=== PATIENT | female | born 1955 | race African-American/Black ===

== ENCOUNTER → 2016-06-29 | Outpatient (CLI) | payer MEDICARE, OTHER ==
[2016-06-29 13:23] LABS: HEMATOCRIT 35.7 % (36.0-47.0); HEMOGLOBIN 11.8 g/dL (12.0-15.5); HGB HCT DIFFERENCE -0.3; MEAN CORPUSCULAR VOLUME 85 fl (80-97); RED BLOOD COUNT 4.21 10^6/uL (3.72-5.28); RED CELL DISTRIBUTION WIDTH 13.3 % (11.5-14.0); WHITE BLOOD COUNT 5.2 10^3/uL (4.0-10.5)
[2016-06-29 13:27] LABS: APPEARANCE,URINE SLIGHTLY-CLOUDY; BILIRUBIN,URINE NEGATIVE (NEGATIVE); GLUCOSE, URINE NEGATIVE (NEGATIVE); KETONES,URINE NEGATIVE (NEGATIVE); LEUKOCYTE ESTERASE,URINE NEGATIVE (NEGATIVE); NITRITE,URINE NEGATIVE (NEGATIVE); PROTEIN,URINE 30 mg/dL (NEGATIVE); UROBILINOGEN,URINE NEGATIVE mg/dL (<2.0)
[2016-06-29 13:54] LABS: ALBUMIN 4.2 g/dL (3.5-5.0); ANION GAP 11 (5-19); BLOOD UREA NITROGEN 31 mg/dL (7-20); CALCIUM 9.6 mg/dL (8.4-10.2); CARBON DIOXIDE 24 mmol/L (22-30); CHLORIDE 105 mmol/L (98-107); CREATININE RESULT 1.51 mg/dL (0.52-1.25); GLUCOSE 121 mg/dL (75-110); SODIUM 140.2 mmol/L (137-145); TOTAL PROTEIN 7.4 g/dL (6.3-8.2)
[2016-06-29 13:55] LABS: ALANINE AMINOTRANSFERASE 40 U/L (9-52); ALKALINE PHOSPHATASE 114 U/L (38-126); ASPARTATE AMINO TRANSFERASE 29 U/L (14-36); BILIRUBIN,TOTAL 0.6 mg/dL (0.2-1.3)
== END ==
LOC: LAB 12:57
PROVIDERS: ATTEND Internal Medicine Nephrology
DX: I12.9 Hypertensive chronic kidney disease with stage 1 through stage 4 chronic kidney disease, or unspecified chronic kidney disease (principal); N18.3 Chronic kidney disease, stage 3 (moderate); E11.9 Type 2 diabetes mellitus without complications
CPT/HCPCS: 36415; 80053; 81001; 85027

== ENCOUNTER → 2016-10-18 | Outpatient (CLI) | payer MEDICARE, OTHER ==
[2016-10-18 14:14] LABS: ANION GAP 11 (5-19); BLOOD UREA NITROGEN 19 mg/dL (7-20); CALCIUM 9.1 mg/dL (8.4-10.2); CARBON DIOXIDE 26 mmol/L (22-30); CHLORIDE 105 mmol/L (98-107); CREATININE RESULT 1.29 mg/dL (0.52-1.25); GLUCOSE 163 mg/dL (75-110); POTASSIUM 3.9 mmol/L (3.6-5.0); SODIUM 142.2 mmol/L (137-145)
== END ==
LOC: LAB 13:19
PROVIDERS: ATTEND Internal Medicine Nephrology
DX: E11.22 Type 2 diabetes mellitus with diabetic chronic kidney disease (principal); I12.9 Hypertensive chronic kidney disease with stage 1 through stage 4 chronic kidney disease, or unspecified chronic kidney disease; N18.3 Chronic kidney disease, stage 3 (moderate); R80.9 Proteinuria, unspecified
CPT/HCPCS: 36415; 80048

== ENCOUNTER → 2017-03-22 | Outpatient (CLI) | payer MEDICARE, OTHER ==
[2017-03-22 10:48] LABS: HEMATOCRIT 35.6 % (36.0-47.0); HEMOGLOBIN 11.8 g/dL (12.0-15.5); HGB HCT DIFFERENCE -0.2; MEAN CORPUSCULAR HEMOGLOBIN 27.9 pg (27.0-33.4); MEAN CORPUSCULAR HGB CONC 33.2 g/dL (32.0-36.0); MEAN CORPUSCULAR VOLUME 84 fl (80-97); RED BLOOD COUNT 4.23 10^6/uL (3.72-5.28); RED CELL DISTRIBUTION WIDTH 12.6 % (11.5-14.0); WHITE BLOOD COUNT 3.8 10^3/uL (4.0-10.5)
[2017-03-22 11:09] LABS: APPEARANCE,URINE CLEAR; BILIRUBIN,URINE NEGATIVE (NEGATIVE); GLUCOSE, URINE NEGATIVE (NEGATIVE); KETONES,URINE NEGATIVE (NEGATIVE); LEUKOCYTE ESTERASE,URINE NEGATIVE (NEGATIVE); NITRITE,URINE NEGATIVE (NEGATIVE); PROTEIN,URINE 30 mg/dL (NEGATIVE); URINE SPECIFIC GRAVITY 1.009; UROBILINOGEN,URINE NEGATIVE mg/dL (<2.0)
[2017-03-22 11:23] LABS: ANION GAP 10 (5-19); BLOOD UREA NITROGEN 23 mg/dL (7-20); CALCIUM 9.2 mg/dL (8.4-10.2); CARBON DIOXIDE 30 mmol/L (22-30); CHLORIDE 105 mmol/L (98-107); CREATININE RESULT 1.43 mg/dL (0.52-1.25); GLUCOSE 87 mg/dL (75-110); POTASSIUM 4.6 mmol/L (3.6-5.0); SODIUM 144.7 mmol/L (137-145)
== END ==
LOC: LAB 10:29
PROVIDERS: ATTEND Internal Medicine Nephrology
DX: N18.3 Chronic kidney disease, stage 3 (moderate) (principal); R80.9 Proteinuria, unspecified; E11.9 Type 2 diabetes mellitus without complications; I12.9 Hypertensive chronic kidney disease with stage 1 through stage 4 chronic kidney disease, or unspecified chronic kidney disease
CPT/HCPCS: 36415; 80048; 81001; 85027

== ENCOUNTER 2017-09-13 09:18 | Observation (INO) | payer MEDICARE, OTHER ==
[2017-09-13] MEDS ORDERED: ASPIRIN 81 MG TABLET, CHEWABLE PO ONE (09:41)
--- NOTE | 2017-09-13 09:42 | ER Document Report ---
ED Medical Screen (RME) - General Chief Complaint: Chest Pain > 30 Stated Complaint: CHEST PAIN, DIZZY Time Seen by Provider: 09/13/17 09:41 TRAVEL OUTSIDE OF THE [place] IN LAST 30 DAYS: No - HPI Notes: 09/13/17 09:41 Chest pain dizziness and myalgias ongoing since this morning. Patient did not take her blood pressure medication - Related Data Allergies/Adverse Reactions: amoxicillin [Amoxicillin] Allergy (Verified 09/13/17 09:20) Past Medical History - Social History Chew tobacco use (# tins/day): No Frequency of alcohol use: None Drug Abuse: None - Past Medical History Cardiac Medical History: Reports: Hx Heart Attack, Hx Hypercholesterolemia, Hx Hypertension Neurological Medical History: Denies: Hx Cerebrovascular Accident Endocrine Medical History: Reports: Hx Diabetes Mellitus Type 2 Renal/ Medical History: Denies: Hx Peritoneal Dialysis GI Medical History: Reports: Hx Gastroesophageal Reflux Disease Psychiatric Medical History: Reports: Hx Depression - in hx Past Surgical History: Reports: Hx Hysterectomy - Immunizations Hx Diphtheria, Pertussis, Tetanus Vaccination: No Review of Systems - Review of Systems Constitutional: Other - Chest pain dizziness myalgias Physical Exam - Vital signs Vitals: Temp Pulse Resp BP Pulse Ox 97.8 F 65 16 177/72 H 96 09/13/17 09:33 09/13/17 09:33 09/13/17 09:33 09/13/17 09:33 09/13/17 09:33 - General General appearance: Appears well In distress: None Course - Vital Signs Vital signs: Temp Pulse Resp BP Pulse Ox 97.8 F 65 16 177/72 H 96 09/13/17 09:33 09/13/17 09:33 09/13/17 09:33 09/13/17 09:33 09/13/17 09:33
[2017-09-13 10:17] LABS: ABSOLUTE EOSINOPHILS # (AUTO) 0.2 10^3/uL (0.0-0.6); ABSOLUTE LYMPHOCYTES (AUTO) 1.5 10^3/uL (0.5-4.7); ABSOLUTE MONOCYTES (AUTO) 0.3 10^3/uL (0.1-1.4); BASOPHILS % (AUTO) 0.7 % (0-2); EOSINOPHILS % (AUTO) 4.5 % (0-6); HEMATOCRIT 38.9 % (36.0-47.0); HEMOGLOBIN 12.9 g/dL (12.0-15.5); LYMPHOCYTES % (AUTO) 38.6 % (13-45); MEAN CORPUSCULAR HEMOGLOBIN 27.7 pg (27.0-33.4); MEAN CORPUSCULAR HGB CONC 33.1 g/dL (32.0-36.0); MEAN CORPUSCULAR VOLUME 84 fl (80-97); MONOCYTES % (AUTO) 7.2 % (3-13); PLATELET COUNT 223 10^3/uL (150-450); RED BLOOD COUNT 4.65 10^6/uL (3.72-5.28); RED CELL DISTRIBUTION WIDTH 12.7 % (11.5-14.0); TOTAL CELLS COUNTED % (AUTO) 100 %
[2017-09-13 10:30] LABS: ALANINE AMINOTRANSFERASE 37 U/L (9-52); ALBUMIN 4.2 g/dL (3.5-5.0); ALKALINE PHOSPHATASE 131 U/L (38-126); ANION GAP 10 (5-19); ASPARTATE AMINO TRANSFERASE 27 U/L (14-36); BILIRUBIN,DIRECT 0.2 mg/dL (0.0-0.4); BILIRUBIN,TOTAL 0.5 mg/dL (0.2-1.3); BLOOD UREA NITROGEN 20 mg/dL (7-20); CALCIUM 9.6 mg/dL (8.4-10.2); CARBON DIOXIDE 31 mmol/L (22-30); CHLORIDE 101 mmol/L (98-107); CREATINE KINASE 147 U/L (30-135); GLUCOSE 235 mg/dL (75-110); POTASSIUM 3.8 mmol/L (3.6-5.0); SODIUM 142.4 mmol/L (137-145); TOTAL PROTEIN 7.5 g/dL (6.3-8.2)
--- NOTE | 2017-09-13 10:35 | ER Document Report ---
ED Cardiac - General Chief Complaint: Chest Pain > 30 Stated Complaint: CHEST PAIN, DIZZY Time Seen by Provider: 09/13/17 09:41 Notes: The patient is a 62-year-old female, past medical history hypertension, IDDM, presents with several hours of substernal chest pain and diffuse chest pressure started while she was sleeping. She has never had pain like this before. She did not take any of her medications this none of her blood pressure medications. Her last stress test was 3 years ago and she said it was normal. She denies shortness of breath, numbness, tingling, back pain, nausea, vomiting , diaphoresis, rash or abdominal pain. TRAVEL OUTSIDE OF THE [place] IN LAST 30 DAYS: No - Related Data Allergies/Adverse Reactions: amoxicillin [Amoxicillin] Allergy (Verified 09/13/17 09:20) Past Medical History - General Information source: Patient - Social History Smoking Status: Never Smoker Chew tobacco use (# tins/day): No Frequency of alcohol use: None Drug Abuse: None Family History: None Patient has suicidal ideation: No Patient has homicidal ideation: No - Past Medical History Cardiac Medical History: Reports: Hx Heart Attack, Hx Hypercholesterolemia, Hx Hypertension Neurological Medical History: Denies: Hx Cerebrovascular Accident Endocrine Medical History: Reports: Hx Diabetes Mellitus Type 2 Renal/ Medical History: Denies: Hx Peritoneal Dialysis GI Medical History: Reports: Hx Gastroesophageal Reflux Disease Psychiatric Medical History: Reports: Hx Depression - in hx Past Surgical History: Reports: Hx Hysterectomy - Immunizations Hx Diphtheria, Pertussis, Tetanus Vaccination: No Review of Systems - Review of Systems Notes: REVIEW OF SYSTEMS: CONSTITUTIONAL: -fevers, -chills EENT: -eye pain, -difficulty swallowing, -nasal congestion CARDIOVASCULAR: +chest pain, -syncope. RESPIRATORY: -cough, -SOB GASTROINTESTINAL: -abdominal pain, -nausea, -vomiting, -diarrhea GENITOURINARY: -dysuria, -hematuria MUSCULOSKELETAL: -back pain, -neck pain SKIN: -rash or skin lesions. HEMATOLOGIC: -easy bruising or bleeding. LYMPHATIC: -swollen, enlarged glands. NEUROLOGICAL: -altered mental status or loss of consciousness, -headache, - neurologic symptoms PSYCHIATRIC: -anxiety, -depression. ALL OTHER SYSTEMS REVIEWED AND NEGATIVE. Physical Exam - Vital signs Vitals: Temp Pulse Resp BP Pulse Ox 97.8 F 65 16 177/72 H 96 09/13/17 09:33 09/13/17 09:33 09/13/17 09:33 09/13/17 09:33 09/13/17 09:33 - Notes Notes: PHYSICAL EXAMINATION: GENERAL: Well-appearing, well-nourished and in no acute distress. HEAD: Atraumatic, normocephalic. EYES: Pupils equal round and reactive to light, extraocular movements intact, sclera anicteric, conjunctiva are normal. ENT: nares patent, oropharynx clear without exudates. Moist mucous membranes. NECK: Normal range of motion, supple without lymphadenopathy LUNGS: Breath sounds clear to auscultation bilaterally and equal. No wheezes rales or rhonchi. HEART: Regular rate and rhythm without murmurs ABDOMEN: Soft, nontender, normoactive bowel sounds. No guarding, no rebound. No masses appreciated. EXTREMITIES: Normal range of motion, no pitting or edema. No cyanosis. Strong distal pulses. NEUROLOGICAL: Cranial nerves grossly intact. Normal speech, normal gait. Normal sensory and motor exams. PSYCH: Normal mood, normal affect. SKIN: Warm, Dry, normal turgor, no rashes or lesions noted. Course - Re-evaluation Re-evalutation: Pt with anterior chest pressure that is improved with nitro. EKG does not show a STEMI and first troponin is negative. Chest x-ray also does not show any acute abnormalities. Her HEART score is 5. No risk factors of PE and her symptoms are atypical for aortic dissection at this time. 09/13/17 12:05 Spoke to Dilcia Moser NP, and she has accepted patient to [facility] for further evaluation and treatment. - Vital Signs Vital signs: Temp Pulse Resp BP Pulse Ox 97.8 F 65 15 132/71 H 96 09/13/17 09:33 09/13/17 09:33 09/13/17 11:26 09/13/17 11:26 09/13/17 11:26 - Laboratory Result Diagrams: 09/13/17 10:01 09/13/17 10:01 Laboratory results interpreted by me: 09/13/17 10:01 Carbon Dioxide 31 H Creatinine 1.39 H Est GFR ( Amer) 46 L Est GFR (Non-Af Amer) 38 L Glucose 235 H Alkaline Phosphatase 131 H Creatine Kinase 147 H - Diagnostic Test Radiology reviewed: Image reviewed, Reports reviewed Radiology results interpreted by me: CXR: NAD - EKG Interpretation by Me EKG shows normal: Sinus rhythm, Kaycee, Intervals, QRS Complexes, ST-T Waves Rate: Normal Discharge - Discharge Clinical Impression: History of hypertension, History of diabetes mellitus, type II Chest pain Qualifiers: Chest pain type: unspecified Qualified Code(s): R07.9 - Chest pain, unspecified Condition: Stable Disposition: ADMITTED OBSERVATION Admitting Provider: Hospitalist - [facility] Admitted: Telemetry Referrals: DES LEDBETTER MD [Primary Care Provider] - Follow up as needed
--- NOTE | 2017-09-13 10:38 | RADIOLOGY REPORT (SQ) ---
EXAM DESCRIPTION: CHEST 2 VIEWS COMPLETED DATE/TIME: 09/13/2017 10:18 am REASON FOR STUDY: cp COMPARISON: None. EXAM PARAMETERS: NUMBER OF VIEWS: two views TECHNIQUE: Digital Frontal and Lateral radiographic views of the chest acquired. RADIATION DOSE: NA LIMITATIONS: none FINDINGS: LUNGS AND PLEURA: No opacities, masses or pneumothorax. No pleural effusion. MEDIASTINUM AND HILAR STRUCTURES: No masses or contour abnormalities. HEART AND VASCULAR STRUCTURES: Heart normal size. No evidence for failure. BONES: No acute findings. HARDWARE: None in the chest. OTHER: No other significant finding. IMPRESSION: NO ACUTE RADIOGRAPHIC FINDING IN THE CHEST. TECHNICAL DOCUMENTATION: JOB ID: [id number] [employer]- All Rights Reserved Reading location - IP/workstation name: [email or web address]
[2017-09-13] MEDS ORDERED: VALSARTAN 80 MG TABLET PO ONE (10:39)
[2017-09-13] MEDS ORDERED: HYDROCHLOROTHIAZIDE 12.5 MG CAPSULE PO ONE (10:39)
[2017-09-13 10:46] LABS: CREATINE KINASE MB 1.01 ng/mL (<4.55)
[2017-09-13 10:50] LABS: TROPONIN I < 0.012 ng/mL
[2017-09-13] MEDS: NITROGLYCERIN 0.4 MG/TAB 25 TAB/BOTTLE SL PRN ×2 (11:13→11:27)
[2017-09-13] MEDS ORDERED: NITROGLYCERIN 0.4 MG/TAB 25 TAB/BOTTLE SL PRN (12:21)
[2017-09-13] MEDS ORDERED: DEXTROSE 50%-WATER 25 GM/50 ML DISP.SYRIN IV PRN ×2 (12:23)
[2017-09-13] MEDS ORDERED: GLUCAGON,HUMAN RECOMB 1 MG INJ IM PRN (12:23)
[2017-09-13] MEDS ORDERED: DEXTROSE 40% GEL 15 GM TUBE PO PRN ×2 (12:23)
[2017-09-13] MEDS ORDERED: ACETAMINOPHEN 325 MG TABLET PO PRN (12:47)
[2017-09-13] MEDS ORDERED: MAG HYDROX/AL HYDROX/SIMETH SUSP 30 ML UDCUP PO PRN (12:47)
[2017-09-13] MEDS ORDERED: MORPHINE SULFATE 10 MG/ML INJ IV PRN (12:48)
--- NOTE | 2017-09-13 13:03 | PDOC H&P ---
History of Present Illness Admission Date/PCP: DES LEDBETTER MD Patient complains of: Chest pain History of Present Illness: ANGUS ONTIVEROS is a 62 year old female with a past medical history of insulin- dependent diabetes mellitus, hypertension, and chronic kidney disease. The patient presented to the emergency department today with a complaint of chest pain that woke her from sleep this morning. She reports that she went to bed last night and felt muscle cramps throughout the evening. She woke in the middle of the night and took a spoonful of mustard which seemed to ease her muscle cramps. She went back to sleep and then woke this morning with chest pain described as heaviness that radiated to her back where she has a burning sensation. She also reported that she had associated neck and shoulder discomfort described as stiffness. She states that upon arrival to the emergency department she briefly felt dizzy but otherwise denies headache, dizziness, dyspnea, nausea. The patient reports she has not had similar symptoms in the past and has no known cardiac disease. She reports that the pain resolved following her third administration of sublingual nitroglycerin tab. Evaluation in the emergency department reveals a creatinine of 1.39 which is near her baseline, and a mildly elevated bicarb. Her initial troponin is negative. Chest x-ray is negative for acute cardiopulmonary processes. EKG demonstrates sinus rhythm. Heart score 5; high risk. She is referred to the hospitalist service for observational admission for chest pain rule out. Past Medical History Cardiac Medical History: Reports: Hyperlipidema, Hypertension Denies: Congestive Heart Failure, Coronary Artery Disease, Myocardial Infarction Pulmonary Medical History: Reports: None EENT Medical History: Reports: None Neurological Medical History: Reports: None Endocrine Medical History: Reports: Diabetes Mellitus Type 2 - Insulin-dependent Renal/ Medical History: Reports: Chronic Kidney Disease GI Medical History: Reports: Gastroesophageal Reflux Disease, Other - Small bowel resection Musculoskeltal Medical History: Reports: None Skin Medical History: Reports: None Psychiatric Medical History: Reports: Depression - in hx Denies: Alcohol Dependency, Tobacco Dependency Traumatic Medical History: Reports: None Hematology: Reports: None Infectious Medical History: Reports: None Past Surgical History Past Surgical History: Reports: Appendectomy, Hysterectomy, Other - Small bowel resection Social History Information Source: Patient Lives with: Family Smoking Status: Never Smoker Frequency of Alcohol Use: Rare Hx Recreational Drug Use: No Drugs: None Hx Prescription Drug Abuse: No - Advance Directive Resuscitation Status: Full Code Surrogate healthcare decision maker:: The patient's , Teddy Ontiveros, Family History Family History: Reviewed & Not Pertinent Parental Family History Reviewed: Yes Children Family History Reviewed: Yes Sibling(s) Family History Reviewed.: Yes Medication/Allergy Home Medications: Aspirin [Aspirin 81 mg Chewable Tablet] 81 mg PO DAILY 03/06/11 Insulin Lispro [Humalog] 10 unit SQ AC 03/06/11 Insulin Glargine,Hum.rec.anlog [Lantus] 30 unit SQ QHS 08/01/14 Valsartan/Hydrochlorothiazide [Valsartan-Hctz 80-12.5 mg Tab] 1 tab PO DAILY 01/23 Allergies/Adverse Reactions: amoxicillin [Amoxicillin] Allergy (Verified 09/13/17 09:20) Review of Systems Constitutional: ABSENT: chills, fever(s), headache(s), weight gain, weight loss Eyes: ABSENT: visual disturbances Ears: ABSENT: hearing changes Cardiovascular: PRESENT: chest pain. ABSENT: dyspnea on exertion, edema, orthropnea, palpitations Respiratory: ABSENT: cough, hemoptysis Gastrointestinal: ABSENT: abdominal pain, constipation, diarrhea, hematemesis, hematochezia, nausea, vomiting Genitourinary: ABSENT: dysuria, hematuria Musculoskeletal: PRESENT: other - Muscle cramps. ABSENT: joint swelling Integumentary: ABSENT: rash, wounds Neurological: PRESENT: vertigo - Dizziness during chest pain episode. ABSENT: abnormal gait, abnormal speech, confusion, dizziness, focal weakness, syncope Psychiatric: ABSENT: anxiety, depression, homidical ideation, suicidal ideation Endocrine: ABSENT: cold intolerance, heat intolerance, polydipsia, polyuria Hematologic/Lymphatic: ABSENT: easy bleeding, easy bruising Physical Exam Vital Signs: Temp Pulse Resp BP Pulse Ox 97.8 F 65 15 132/71 H 96 09/13/17 09:33 09/13/17 09:33 09/13/17 11:26 09/13/17 11:26 09/13/17 11:26 Intake & Output 09/12/17 09/13/17 09/14/17 06:59 06:59 06:59 Weight 100.7 kg General appearance: PRESENT: no acute distress, cooperative, obese, well- developed, well-nourished Head exam: PRESENT: atraumatic, normocephalic Eye exam: PRESENT: conjunctiva pink, EOMI, PERRLA. ABSENT: scleral icterus Ear exam: PRESENT: normal external ear exam Mouth exam: PRESENT: moist, tongue midline Neck exam: ABSENT: carotid bruit, JVD, lymphadenopathy, thyromegaly Respiratory exam: PRESENT: clear to auscultation maximino, symmetrical, unlabored. ABSENT: rales, rhonchi, wheezes Cardiovascular exam: PRESENT: RRR, +S1, +S2. ABSENT: diastolic murmur, rubs, systolic murmur Pulses: PRESENT: normal dorsalis pedis pul Vascular exam: PRESENT: normal capillary refill GI/Abdominal exam: PRESENT: normal bowel sounds, soft. ABSENT: distended, guarding, mass, organolmegaly, rebound, tenderness Rectal exam: PRESENT: deferred Extremities exam: PRESENT: full ROM. ABSENT: calf tenderness, clubbing, pedal edema Neurological exam: PRESENT: alert, awake, oriented to person, oriented to place , oriented to time, oriented to situation, CN II-XII grossly intact. ABSENT: motor sensory deficit Psychiatric exam: PRESENT: appropriate affect, normal mood. ABSENT: homicidal ideation, suicidal ideation Skin exam: PRESENT: dry, intact, warm. ABSENT: cyanosis, rash Results Laboratory Results: 09/13/17 10:01 09/13/17 10:01 09/13/17 09/13/17 10:01 10:01 WBC 4.0 RBC 4.65 Hgb 12.9 Hct 38.9 MCV 84 MCH 27.7 MCHC 33.1 RDW 12.7 Plt Count 223 Seg Neutrophils % 49.0 Lymphocytes % 38.6 Monocytes % 7.2 Eosinophils % 4.5 Basophils % 0.7 Absolute Neutrophils 2.0 Absolute Lymphocytes 1.5 Absolute Monocytes 0.3 Absolute Eosinophils 0.2 Absolute Basophils 0.0 Sodium 142.4 Potassium 3.8 Chloride 101 Carbon Dioxide 31 H Anion Gap 10 BUN 20 Creatinine 1.39 H Est GFR ( Amer) 46 L Est GFR (Non-Af Amer) 38 L Glucose 235 H Calcium 9.6 Total Bilirubin 0.5 AST 27 ALT 37 Alkaline Phosphatase 131 H Total Protein 7.5 Albumin 4.2 09/13/17 09/13/17 10:01 10:01 Creatine Kinase 147 H CK-MB (CK-2) 1.01 Troponin I < 0.012 Impressions: Chest X-Ray 09/13/17 09:41 IMPRESSION: NO ACUTE RADIOGRAPHIC FINDING IN THE CHEST. Assessment & Plan - Diagnosis (1) Chest pain Qualifiers: Chest pain type: unspecified Qualified Code(s): R07.9 - Chest pain, unspecified Is this a current diagnosis for this admission?: Yes Plan: The patient is admitted with a report of sudden onset chest pain this morning that woke her from sleep described as heaviness and radiating to her back associated with neck and shoulder stiffness. The patient has a history of insulin-dependent diabetes mellitus, hypertension, chronic kidney disease. Heart score 5; high risk. EKG demonstrated normal sinus rhythm. Chest x-ray is negative for acute cardiopulmonary processes. Initial troponin is negative. The patient will be admitted to the medical floor on continuous cardiac telemetry. She is provided supplemental oxygen as needed to maintain oxygen saturations greater than 90%. We will trend troponins. We will obtain echocardiogram. We will obtain a nuclear stress test. The patient has sublingual nitro tabs and IV morphine available as needed for pain. Daily aspirin and statin therapy are initiated. We will further stratify risk by obtaining lipid panel with fasting labs in the morning. (2) Insulin dependent diabetes mellitus Is this a current diagnosis for this admission?: Yes Plan: The patient is placed on a consistent carb/cardiac diet. Accu-Cheks before meals and at bedtime with Humalog for sliding scale coverage. We will continue the patient's home dose Lantus 30 units nightly. (3) Hypertension Is this a current diagnosis for this admission?: Yes Plan: We will continue the patient's home medication valsartan/hydrochlorothiazide 80- 12.5 daily. (4) Chronic kidney disease (CKD), stage III (moderate) Is this a current diagnosis for this admission?: Yes Plan: Stable; currently at patient's baseline kidney function. We will avoid nephrotoxic medications. We will monitor with daily chemistries. - Time Time Spent: 50 to 70 Minutes Medications reviewed and adjusted accordingly: Yes Anticipated discharge: Home Within: within 24 hours
--- NOTE | 2017-09-13 14:03 | EKG REPORT ---
SEVERITY:- NORMAL ECG - SINUS RHYTHM : Confirmed by: Devyn Rivas MD 13-Sep-2017 14:02:31
[2017-09-13] MEDS: INSULIN LISPRO 100 UNIT/ML 3 ML VIAL SUBCUT PRN ×2 (14:11→18:30)
--- NOTE | 2017-09-13 19:25 | XCELERA REPORT ---
[address] [address] Transthoracic Echocardiogram Report Name: NAGUS PRYOR Age: 62 yrs Gender: Female : 1955 Patient Status: Inpatient [address] Study Date: 09/13/2017 01:31 PM Height: 66 in Weight: 222 lb BSA: 2.1 m2 Procedure: A complete two-dimensional transthoracic echocardiogram was performed (2D, M-mode, spectral and color flow Doppler). The study was technically difficult with many images being suboptimal in quality. Reason For Study: CP Ordering Physician: BURKE MORSE Performed By: Soniya Salinas Interpretation Summary The left ventricular ejection fraction is normal. Doppler measurements suggest pseudonormalized left ventricular relaxation, which is associated with grade II/IV or mild to moderate diastolic dysfunction There is borderline concentric left ventricular hypertrophy. The left ventricle is grossly normal size. Regional wall motion abnormalities cannot be excluded due to limited visualization. The right ventricular systolic function is normal. The right ventricle is grossly normal size. The left atrial size is normal. The right atrium is normal in size There is a trace amount of mitral regurgitation There is no mitral valve stenosis. There is no aortic valve stenosis No aortic regurgitation is present. There is a trace or physiologic amount of tricuspid regurgitation Tricuspid regurgitation jet envelope not well defined to measure RV systolic pressure accurately. The aortic root is not well visualized but is probably normal size. The inferior vena cava was not well visualized There is no pericardial effusion. MMode/2D Measurements & Calculations RVDd: 2.3 cm LVIDd: 3.9 cm FS: 35.2 % Ao root diam: 2.5 cm IVSd: 0.99 cm LVIDs: 2.5 cm EDV(Teich): 65.0 ml LVPWd: 0.97 cm ESV(Teich): 22.6 ml Ao root area: 5.0 cm2 EF(Teich): 65.2 % Doppler Measurements & Calculations MV E max selena: MV dec slope: Ao V2 max: LV V1 max P.3 cm/sec 165.4 cm/sec 5.5 mmHg MV A max selena: 432.6 cm/sec2 Ao max PG: LV V1 max: 74.3 cm/sec MV dec time: 10.9 mmHg 117.7 cm/sec MV E/A: 1.1 0.19 sec PA V2 max: TR max selena: 90.1 cm/sec 211.5 cm/sec PA max PG: TR max P.9 mmHg 3.2 mmHg Left Ventricle The left ventricle is grossly normal size. There is borderline concentric left ventricular hypertrophy. The left ventricular ejection fraction is normal. Doppler measurements suggest pseudonormalized left ventricular relaxation, which is associated with grade II/IV or mild to moderate diastolic dysfunction. Regional wall motion abnormalities cannot be excluded due to limited visualization. Right Ventricle The right ventricle is grossly normal size. There is normal right ventricular wall thickness. The right ventricular systolic function is normal. Atria The right atrium is normal in size. The left atrial size is normal. Interarterial septum not well visualized and not well dopplered. Cannot comment on ASD/PFO presence. Mitral Valve The mitral valve is grossly normal. There is no mitral valve stenosis. There is a trace amount of mitral regurgitation. Aortic Valve The aortic valve is grossly normal. There is no aortic valve stenosis. No aortic regurgitation is present. Tricuspid Valve The tricuspid valve is not well visualized secondary to technical limitations. There is no tricuspid stenosis. There is a trace or physiologic amount of tricuspid regurgitation. Tricuspid regurgitation jet envelope not well defined to measure RV systolic pressure accurately. Pulmonic Valve The pulmonic valve is not well visualized. Great Vessels The aortic root is not well visualized but is probably normal size. The inferior vena cava was not well visualized. Effusions There is no pericardial effusion. : BURKE MORSE > Crystal Hendrickson
[2017-09-13] MEDS: FAMOTIDINE 20 MG TABLET PO SCH (21:19)
[2017-09-13] MEDS ORDERED: ATORVASTATIN CALCIUM 20 MG TABLET PO SCH (22:00)
[2017-09-13] MEDS ORDERED: INSULIN GLARGINE,HUM.REC.ANLOG 1,000 UNIT/10 ML UNIT SUBCUT SCH (22:00)
[2017-09-14 05:37] LABS: ANION GAP 10 (5-19); BLOOD UREA NITROGEN 24 mg/dL (7-20); CALCIUM 9.2 mg/dL (8.4-10.2); CARBON DIOXIDE 29 mmol/L (22-30); CHLORIDE 102 mmol/L (98-107); CHOLESTEROL 198.98 mg/dL (0-200); GLUCOSE 171 mg/dL (75-110); POTASSIUM 3.7 mmol/L (3.6-5.0); SODIUM 141.1 mmol/L (137-145); TRIGLYCERIDES 176 mg/dL (<150); VLDL CHOLESTEROL 35.2 mg/dL (10-31)
[2017-09-14 05:47] LABS: DIRECT LDL 104 mg/dL (<100)
[2017-09-14 07:25] LABS: HEMOGLOBIN 11.7 g/dL (12.0-15.5); MEAN CORPUSCULAR HEMOGLOBIN 27.9 pg (27.0-33.4); MEAN CORPUSCULAR HGB CONC 33.5 g/dL (32.0-36.0); MEAN CORPUSCULAR VOLUME 83 fl (80-97); PLATELET COUNT 203 10^3/uL (150-450); RED BLOOD COUNT 4.19 10^6/uL (3.72-5.28); RED CELL DISTRIBUTION WIDTH 12.4 % (11.5-14.0); WHITE BLOOD COUNT 4.6 10^3/uL (4.0-10.5)
[2017-09-14] MEDS: INSULIN LISPRO 100 UNIT/ML 3 ML VIAL SUBCUT PRN ×2 (08:23→11:34)
[2017-09-14] MEDS ORDERED: VALSARTAN 80 MG TABLET PO SCH (10:00)
[2017-09-14] MEDS ORDERED: HYDROCHLOROTHIAZIDE 12.5 MG CAPSULE PO SCH (10:00)
[2017-09-14] MEDS ORDERED: ASPIRIN 81 MG TABLET, ENT COATED PO SCH (10:00)
[2017-09-14] MEDS ORDERED: (PENDING PHARMACY ID) (Valsartan/Hydrochlorothiazide [Valsartan-Hctz 80-12.5 Mg Tab] 1 TAB PO SCH (10:00)
[2017-09-14] MEDS: FAMOTIDINE 20 MG TABLET PO SCH (11:33)
--- NOTE | 2017-09-14 13:01 | DRAGON STRESS TEST REPORT ---
INTRAVENOUS LEXISCAN CARDIOLITE STRESS TEST USING SINGLE PHOTON EMMISION COMPUTERIZED TOMOGRAPHIC. DATE OF PROCEDURE: September 14, 2017, INDICATION : Chest pain CARDIAC RISK FACTORS: Diabetes, hypertension, dyslipidemia RESTING EKG: Sinus rhythm, minor nonspecific ST-T wave changes noted. STRESS EKG: No significant ST segment changes noted with LexiScan bolus REASON FOR TERMINATION: Protocol. PROCEDURE REPORT: Baseline heart rate 63 beats per minute with blood pressure of 147/68. Patient had no significant complaints. Patient was bolused with Lexiscan 0.4 mg intravenously followed by saline bolus. Heart rate at 2 minutes post bolus 118 with a blood pressure of 128/49. 3 minutes post bolus heart rate 108 with blood pressure of 150/54. No significant EKG changes were noted. Patient had no significant complaints during the procedure or postprocedure. Patient injected with Aminophyllin 75 mg at 3 minutes or later after Lexiscan bolus. CONCLUSIONS: Normal EKG and hemodynamic response to IV LexiScan. NUCLEAR DATA: At rest the patient was given 14.65 millicuries of technetium 99 sestamibi injected intravenously. As per protocol rest gated SPECT images were obtained. On day of stress test, the patient was given intravenous LexiScan at a dose of 0.4 mg in 5 mL intravenously, followed by flush with normal saline. Subsequently the stress dose of 44.7 millicuries of technetium 99 sestamibi was injected intravenously. As per protocol stress gated images were obtained. NUCLEAR INTERPRETATION: Both raw and processed data were used for interpretation. Visual, qualitative, computer-generated quantitative data was used. There was good myocardial uptake of technetium compound. Motion artifact and soft tissue attenuations were noted. Increased visceral uptake was noted. No definitive areas of transient perfusion defect noted, No definitive areas of fixed perfusion defect or scars noted. EKG gated imaging showed LV EF at 61 %, rest and stress gated EF similar visually. T. I D. ratio was 1.04. Lung heart ratio noted to be within normal limits 0.33. No significant extracardiac and abnormal radiotracer activities were noted. RV free wall uptake was noted to be WNL. IMPRESSION: Also refer to comments under nuclear interpretation. Also test results needs to be interpreted in the context of pretest probability. 1. No definitive areas of transient perfusion defect noted. 2. There is no definitive scintigraphic evidence of myocardial infarction/scar. 3. EKG gated imaging shows left ventricular ejection fraction of approx. 61 %. 4. Clinical correlation requested as occasionally single vessel disease or balanced ischemia could be missed. In approximately 10% of the cases Lexiscan may not cause adequate vasodilatory stress. RECOMMENDATIONS: Aggressive risk factor modification and medical management. Further evaluation may be needed if continued symptoms or other high risk indicators are noted on clinical evaluation. Close cardiology follow-up is also recommended. Clinical correlation with echocardiogram derived ejection fraction. Inability to exercise by itself can lead to increased cardiovascular event risks. Consider cardiology consultation and or follow-up if clinically indicated. I am available for cardiology evaluation and consultation if requested by the primary care provider, unless patient already has a vice president of product marketing. MARGIE
[2017-09-14] MEDS ORDERED: REGADENOSON INJ 0.4 MG/5 ML DISP.SYRIN IV ONE (13:19)
[2017-09-14] MEDS ORDERED: AMINOPHYLLINE INJ/PF 250 MG/10 ML SDV IV ONE (13:19)
--- NOTE | 2017-09-14 13:51 | PDOC DISCHARGE SUMMARY ---
General - Admit/Disc Date/PCP Admission Date/Primary Care Provider: 09/13/17 12:22 DES LEDBETTER MD Discharge Date: 09/14/17 - Discharge Diagnosis (1) Chest pain Is this a current diagnosis for this admission?: Yes Summary: The patient was admitted for chest pain with heart score of 5. She had no further episodes of chest pain during this admission. EKG demonstrated normal sinus rhythm. Chest x-ray was negative for acute cardiopulmonary processes. Serial troponins were negative 4. Echocardiogram demonstrated a normal LVEF with mild to moderate diastolic dysfunction. Nuclear stress test was obtained and did not demonstrate evidence of transient perfusion defects or evidence of myocardial infarction/scar. The patient's lipid panel was borderline with LDL of 104, HDL 47, triglycerides 176. The patient declines to begin statin therapy until she discusses this at her follow-up with primary care provider. At time of discharge the patient is in stable condition, pain-free, maintaining oxygen saturations on room air. She is advised to follow-up with her primary care provider within 1 week. She is provided prescriptions for Pepcid and nitroglycerin sublingual tabs. (2) Insulin dependent diabetes mellitus Is this a current diagnosis for this admission?: Yes Summary: Stable; home medication regiment was continued. (3) Hypertension Is this a current diagnosis for this admission?: Yes Summary: Adequate blood pressure control was achieved through continuing the patient's home medication regimen. (4) Chronic kidney disease (CKD), stage III (moderate) Is this a current diagnosis for this admission?: Yes Summary: Stable. - Additional Information Resuscitation Status: Full Code Discharge Diet: Cardiac, Diabetic Discharge Activity: Activity As Tolerated, Balance Activity w/Rest, Slowly Increase Activity Prescriptions: Famotidine [Pepcid 20 mg Tablet] 20 mg PO Q12 #60 tablet Nitroglycerin [Nitrostat 0.4 mg (1/150 Gr) Tabs 25/Bottle] 1 tab SL Q5MP PRN #1 bottle PRN Reason: Home Medications: Aspirin [Aspirin 81 mg Chewable Tablet] 81 mg PO DAILY 03/06/11 Insulin Lispro [Humalog] 0 unit SQ .SLIDING SCALE 03/06/11 Insulin Glargine,Hum.rec.anlog [Lantus] 30 unit SQ QHS 08/01/14 Valsartan/Hydrochlorothiazide [Valsartan-Hctz 80-12.5 mg Tab] 1 tab PO DAILY 01/23 Aspirin [Ecotrin 81 mg EC Tablet] 81 mg PO DAILY tabec 09/14/17 Famotidine [Pepcid 20 mg Tablet] 20 mg PO Q12 #60 tablet 09/14/17 Nitroglycerin [Nitrostat 0.4 mg (1/150 Gr) Tabs 25/Bottle] 1 tab SL Q5MP PRN #1 bottle 09/14/17 History of Present Illness History of Present Illness: ANGUS PRYOR is a 62 year old female with a past medical history of insulin- dependent diabetes mellitus, hypertension, and chronic kidney disease. The patient presented to the emergency department today with a complaint of chest pain that woke her from sleep this morning. She reports that she went to bed last night and felt muscle cramps throughout the evening. She woke in the middle of the night and took a spoonful of mustard which seemed to ease her muscle cramps. She went back to sleep and then woke this morning with chest pain described as heaviness that radiated to her back where she has a burning sensation. She also reported that she had associated neck and shoulder discomfort described as stiffness. She states that upon arrival to the emergency department she briefly felt dizzy but otherwise denies headache, dizziness, dyspnea, nausea. The patient reports she has not had similar symptoms in the past and has no known cardiac disease. She reports that the pain resolved following her third administration of sublingual nitroglycerin tab. Evaluation in the emergency department reveals a creatinine of 1.39 which is near her baseline, and a mildly elevated bicarb. Her initial troponin is negative. Chest x-ray is negative for acute cardiopulmonary processes. EKG demonstrates sinus rhythm. Heart score 5; high risk. She is referred to the hospitalist service for observational admission for chest pain rule out. Physical Exam Vital Signs: Temp Pulse Resp BP Pulse Ox 97.7 F 86 16 130/84 H 95 09/14/17 11:42 09/14/17 11:42 09/14/17 11:42 09/14/17 11:42 09/14/17 11:42 Intake & Output 09/13/17 09/14/17 09/15/17 06:59 06:59 06:59 Intake Total 680 Balance 680 Weight 96.9 kg General appearance: PRESENT: no acute distress, cooperative, obese, well- developed, well-nourished Head exam: PRESENT: atraumatic, normocephalic Eye exam: PRESENT: conjunctiva pink, EOMI, PERRLA. ABSENT: scleral icterus Ear exam: PRESENT: normal external ear exam Mouth exam: PRESENT: moist, tongue midline Neck exam: ABSENT: carotid bruit, JVD, lymphadenopathy, thyromegaly Respiratory exam: PRESENT: clear to auscultation maximino, symmetrical, unlabored. ABSENT: rales, rhonchi, wheezes Cardiovascular exam: PRESENT: RRR, +S1, +S2. ABSENT: diastolic murmur, rubs, systolic murmur Pulses: PRESENT: normal dorsalis pedis pul Vascular exam: PRESENT: normal capillary refill GI/Abdominal exam: PRESENT: normal bowel sounds, soft. ABSENT: distended, guarding, mass, organolmegaly, rebound, tenderness Rectal exam: PRESENT: deferred Extremities exam: PRESENT: full ROM. ABSENT: calf tenderness, clubbing, pedal edema Neurological exam: PRESENT: alert, awake, oriented to person, oriented to place , oriented to time, oriented to situation, CN II-XII grossly intact. ABSENT: motor sensory deficit Psychiatric exam: PRESENT: appropriate affect, normal mood. ABSENT: homicidal ideation, suicidal ideation Skin exam: PRESENT: dry, intact, warm. ABSENT: cyanosis, rash Results Laboratory Results: 09/14/17 04:08 09/14/17 04:08 09/14/17 09/14/17 04:08 04:08 WBC 4.6 RBC 4.19 Hgb 11.7 L Hct 35.0 L MCV 83 MCH 27.9 MCHC 33.5 RDW 12.4 Plt Count 203 Sodium 141.1 Potassium 3.7 Chloride 102 Carbon Dioxide 29 Anion Gap 10 BUN 24 H Creatinine 1.25 Est GFR ( Amer) 52 L Est GFR (Non-Af Amer) 43 L Glucose 171 H Calcium 9.2 Triglycerides 176 H Cholesterol 198.98 LDL Cholesterol Direct 104 H VLDL Cholesterol 35.2 H HDL Cholesterol 47 09/13/17 09/13/17 09/14/17 13:33 18:15 00:25 Troponin I < 0.012 < 0.012 < 0.012 Impressions: Chest X-Ray 09/13/17 09:41 IMPRESSION: NO ACUTE RADIOGRAPHIC FINDING IN THE CHEST. Qualifiers - * PATIENT BEING DISCHARGED WITH ANY OF THE FOLLOWING DIAGNOSIS: No Plan Discharge Plan: Discharge to home with self-care. Follow-up with primary care provider within 1 week.
[2017-09-14 14:12] VITALS: BP 129/46
[2017-09-14] MEDS ORDERED: INSULIN GLARGINE,HUM.REC.ANLOG 1,000 UNIT/10 ML UNIT SUBCUT SCH (22:00)
== END 2017-09-14 14:26 | disposition home or self-care (01) ==
LOC: ER 09:18 → EH 12:22 → 4N 16:45
PROVIDERS: ADMIT Internal Medicine; ATTEND Internal Medicine
DX: R07.9 Chest pain, unspecified (principal); I12.9 Hypertensive chronic kidney disease with stage 1 through stage 4 chronic kidney disease, or unspecified chronic kidney disease; E11.22 Type 2 diabetes mellitus with diabetic chronic kidney disease; N18.3 Chronic kidney disease, stage 3 (moderate); R25.2 Cramp and spasm; M43.6 Torticollis; M25.619 Stiffness of unspecified shoulder, not elsewhere classified; R42 Dizziness and giddiness; M79.1 Myalgia; E78.5 Hyperlipidemia, unspecified; I25.2 Old myocardial infarction; Z79.4 Long term (current) use of insulin; Z79.82 Long term (current) use of aspirin; Z79.899 Other long term (current) drug therapy; Z90.49 Acquired absence of other specified parts of digestive tract
CPT/HCPCS: 93005; 99285; 36415 ×2; 82553; 82962 ×2; 82550; 85025; 85027; 80048; 80053; 84484 ×2; 80061; 93306; 93017; 71046; 78452; 93010; A9500; J2785; A9270 ×11; J3490; J0280; Q9969; J1815

== ENCOUNTER → 2017-09-18 | Outpatient (CLI) | payer MEDICARE, OTHER ==
[2017-09-18 15:00] LABS: HEMATOCRIT 35.6 % (36.0-47.0); HEMOGLOBIN 11.7 g/dL (12.0-15.5); MEAN CORPUSCULAR HEMOGLOBIN 27.6 pg (27.0-33.4); MEAN CORPUSCULAR VOLUME 84 fl (80-97); PLATELET COUNT 203 10^3/uL (150-450); RED BLOOD COUNT 4.25 10^6/uL (3.72-5.28); RED CELL DISTRIBUTION WIDTH 12.9 % (11.5-14.0); WHITE BLOOD COUNT 5.1 10^3/uL (4.0-10.5)
[2017-09-18 15:08] LABS: APPEARANCE,URINE CLEAR; BILIRUBIN,URINE NEGATIVE (NEGATIVE); COLOR,URINE YELLOW; GLUCOSE, URINE >=500 mg/dL (NEGATIVE); KETONES,URINE NEGATIVE (NEGATIVE); LEUKOCYTE ESTERASE,URINE NEGATIVE (NEGATIVE); NITRITE,URINE NEGATIVE (NEGATIVE); PROTEIN,URINE 30 mg/dL (NEGATIVE); URINE SPECIFIC GRAVITY 1.018; UROBILINOGEN,URINE NEGATIVE mg/dL (<2.0)
[2017-09-18 15:22] LABS: ANION GAP 11 (5-19); BLOOD UREA NITROGEN 29 mg/dL (7-20); CALCIUM 8.8 mg/dL (8.4-10.2); CARBON DIOXIDE 28 mmol/L (22-30); CHLORIDE 102 mmol/L (98-107); GLUCOSE 323 mg/dL (75-110); POTASSIUM 4.4 mmol/L (3.6-5.0); SODIUM 141.3 mmol/L (137-145)
[2017-09-18 15:28] LABS: UR PRO/CREAT RATIO RESULT 0.2 mg/mg (0.0-0.2); URINE CREATININE 104.2 mg/dL (15-278); URINE PROTEIN 23.8 mg/dL (<12)
== END ==
LOC: LAB 14:40
PROVIDERS: ATTEND Internal Medicine Nephrology
DX: I12.9 Hypertensive chronic kidney disease with stage 1 through stage 4 chronic kidney disease, or unspecified chronic kidney disease (principal); N18.3 Chronic kidney disease, stage 3 (moderate); R80.9 Proteinuria, unspecified
CPT/HCPCS: 36415; 80048; 81001; 82570; 84156; 85027

== ENCOUNTER → 2018-03-26 | Outpatient (CLI) | payer MEDICARE, OTHER ==
[2018-03-26 12:13] LABS: HEMATOCRIT 36.4 % (36.0-47.0); HEMOGLOBIN 12.3 g/dL (12.0-15.5); MEAN CORPUSCULAR HEMOGLOBIN 28.6 pg (27.0-33.4); MEAN CORPUSCULAR HGB CONC 33.7 g/dL (32.0-36.0); MEAN CORPUSCULAR VOLUME 85 fl (80-97); PLATELET COUNT 226 10^3/uL (150-450); RED BLOOD COUNT 4.29 10^6/uL (3.72-5.28); WHITE BLOOD COUNT 4.1 10^3/uL (4.0-10.5)
[2018-03-26 12:29] LABS: APPEARANCE,URINE SLIGHTLY-CLOUDY; BILIRUBIN,URINE NEGATIVE (NEGATIVE); COLOR,URINE YELLOW; GLUCOSE, URINE 150 mg/dL (NEGATIVE); KETONES,URINE NEGATIVE (NEGATIVE); LEUKOCYTE ESTERASE,URINE NEGATIVE (NEGATIVE); NITRITE,URINE NEGATIVE (NEGATIVE); PROTEIN,URINE 30 mg/dL (NEGATIVE); URINE SPECIFIC GRAVITY 1.013; UROBILINOGEN,URINE NEGATIVE mg/dL (<2.0)
[2018-03-26 12:30] LABS: ANION GAP 10 (5-19); BLOOD UREA NITROGEN 24 mg/dL (7-20); CALCIUM 8.9 mg/dL (8.4-10.2); CARBON DIOXIDE 28 mmol/L (22-30); CHLORIDE 103 mmol/L (98-107); GLUCOSE 250 mg/dL (75-110); POTASSIUM 4.7 mmol/L (3.6-5.0); SODIUM 141.2 mmol/L (137-145)
[2018-03-26 12:38] LABS: UR PRO/CREAT RATIO RESULT 0.3 mg/mg (0.0-0.2); URINE CREATININE 89.2 mg/dL (15-278); URINE PROTEIN 30.9 mg/dL (<12)
== END ==
LOC: LAB 11:49
PROVIDERS: ATTEND Internal Medicine Nephrology
DX: I12.9 Hypertensive chronic kidney disease with stage 1 through stage 4 chronic kidney disease, or unspecified chronic kidney disease (principal); N18.3 Chronic kidney disease, stage 3 (moderate); R80.9 Proteinuria, unspecified
CPT/HCPCS: 36415; 80048; 81001; 82570; 84156; 85027

== ENCOUNTER 2018-05-10 13:10 | Emergency (ER) | payer MEDICARE, OTHER ==
--- NOTE | 2018-05-10 16:29 | ER Document Report ---
Addendum entered and electronically signed by CISCO AGUSTIN NP 05/10/18 22:05: Procedures - Immobilization Left Ankle Time completed: 17:50 Immobilizer type: Eddie wrap, Ankle stirrup, Crutches Performed by: Provider assisted, PCT Post-Proc Neuro Vasc Exam: Normal Alignment checked and good: Yes Original Note: ED Extremity Problem, Lower - General Chief Complaint: Ankle Injury Stated Complaint: LEFT ANKLE INJURY/PAIN, SWELLING Time Seen by Provider: 05/10/18 15:24 Mode of Arrival: Ambulatory Information source: Patient Notes: 63-year-old female presents to ED for complaint of pain to the left ankle. She stepped off a step wrong yesterday. She states she has been able to ambulate but it is very painful. She is alert oriented respirations regular and u nlabored speaking in full sentences. TRAVEL OUTSIDE OF THE [place] IN LAST 30 DAYS: No - HPI Patient complains to provider of: Injury - Left ankle, Pain, Swelling Location: Ankle Occurred: Yesterday - Left Where: Home, Outdoors Onset/Duration: Gradual, Persistent Quality of pain: Achy, Throbbing Severity: Moderate Pain Level: 3 Context: Twisted, Wearing shoes Recent injury: Yes Associated symptoms: Painful ambulation Exacerbated by: Hanging down, Movement, Walking Relieved by: Ice, Rest - Related Data Allergies/Adverse Reactions: amoxicillin [Amoxicillin] Allergy (Verified 05/10/18 15:16) Past Medical History - General Information source: Patient - Social History Smoking Status: Never Smoker Cigarette use (# per day): No Chew tobacco use (# tins/day): No Smoking Education Provided: No Frequency of alcohol use: None Drug Abuse: None Lives with: Family Family History: Reviewed & Not Pertinent Patient has suicidal ideation: No Patient has homicidal ideation: No - Past Medical History Cardiac Medical History: Reports: Hx Coronary Artery Disease, Hx Hypercholesterolemia, Hx Hypertension Pulmonary Medical History: Reports: None EENT Medical History: Reports: None Neurological Medical History: Reports: None Endocrine Medical History: Reports: Hx Diabetes Mellitus Type 2 - Insulin- dependent Renal/ Medical History: Reports: None Malignancy Medical History: Reports: None GI Medical History: Reports: Hx Gastroesophageal Reflux Disease, Hx Colonoscopy, Other - Intestinal blockage with removal of part of the intestines Musculoskeletal Medical History: Reports Hx Arthritis, Reports Hx Musculoskeletal Deformity, Reports Hx Musculoskeletal Trauma Skin Medical History: Reports None Psychiatric Medical History: Reports: Hx Depression - in hx Traumatic Medical History: Reports: None Infectious Medical History: Reports: None Past Surgical History: Reports: Hx Appendectomy, Hx Bowel Surgery - Intestinal blockage of the small intestines with part of the intestines rem, Hx Hysterectomy - Immunizations Hx Diphtheria, Pertussis, Tetanus Vaccination: No Review of Systems - Review of Systems Constitutional: No symptoms reported EENT: No symptoms reported Cardiovascular: No symptoms reported Respiratory: No symptoms reported Gastrointestinal: No symptoms reported Genitourinary: No symptoms reported Female Genitourinary: No symptoms reported Musculoskeletal: Ankle swelling - Left ankle pain and swelling Skin: No symptoms reported Hematologic/Lymphatic: No symptoms reported Neurological/Psychological: No symptoms reported -: Yes All other systems reviewed and negative Physical Exam - Vital signs Vitals: Temp Pulse Resp BP Pulse Ox 98.6 F 77 18 180/69 H 96 05/10/18 13:45 05/10/18 13:45 05/10/18 13:45 05/10/18 13:45 05/10/18 13:45 Interpretation: Normal - General General appearance: Appears well, Alert - HEENT Head: Normocephalic, Atraumatic Eyes: Normal Pupils: PERRL - Respiratory Respiratory status: No respiratory distress Chest status: Nontender Breath sounds: Normal Chest palpation: Normal - Cardiovascular Rhythm: Regular Heart sounds: Normal auscultation Murmur: No - Abdominal Inspection: Normal Distension: No distension Bowel sounds: Normal Tenderness: Nontender Organomegaly: No organomegaly - Back Back: Normal, Nontender - Extremities General upper extremity: Normal inspection, Nontender, Normal color, Normal ROM, Normal temperature General lower extremity: Normal color, Normal temperature. No: Dameon's sign Ankle: Tender, Ecchymosis, Edema. No: Abrasion, Deformity, Instability, Laceration, Limited ROM - Due to pain, Positive Mo's test, Unable to bear weight - Painful to ambulate - Neurological Neuro grossly intact: Yes Cognition: Normal Orientation: AAOx4 Bath Coma Scale Eye Opening: Spontaneous Bath Coma Scale Verbal: Oriented Cory Coma Scale Motor: Obeys Commands Bath Coma Scale Total: 15 Speech: Normal Motor strength normal: LUE, RUE, LLE, RLE Sensory: Normal - Psychological Associated symptoms: Normal affect, Normal mood - Skin Skin Temperature: Warm Skin Moisture: Dry Skin Color: Normal Course - Re-evaluation Re-evalutation: 05/10/18 22:03 The patient is nontoxic appearing with stable vitals. They are afebrile. Ankle exam shows no deformities with no obvious ligament instability. There is a normal pulse and sensation distally. There is no redness or signs of infection. X-rays show no acute fracture per the radiologist. Patient will be placed in an Eddie wrap for comfort. Crutches will be offered and given if requested. Patient will be instructed to follow-up with not better in 1 week, sooner for increasing pain, fever, redness, numbness, tingling, weakness, any further concerns. Patient will be instructed to rest, ice, elevate their ankle. - Vital Signs Vital signs: Temp Pulse Resp BP Pulse Ox 98.3 F 80 18 189/90 H 98 05/10/18 17:41 05/10/18 17:41 05/10/18 17:41 05/10/18 17:41 05/10/18 17:41 - Diagnostic Test Radiology reviewed: Image reviewed, Reports reviewed Discharge - Discharge Clinical Impression: Left ankle sprain Qualifiers: Encounter type: initial encounter Involved ligament of ankle: unspecified ligament Qualified Code(s): S93.402A - Sprain of unspecified ligament of left ankle, initial encounter Condition: Stable Disposition: HOME, SELF-CARE Additional Instructions: SPRAINED ANKLE: Your sprained ankle results from stretching or tearing of the ligaments which support the ankle. This usually results from twisting the foot inward and under. The ligaments will require time and protection in order to heal properly. Many ankle sprains are quite disabling, and should be taken seriously. The usual treatment for an ankle sprain is cold packs; protection with tape, splints, or wraps; elevation; and staying off the ankle for at least a day. As the ankle improves, you can walk IF it's not painful to bear weight. Sports are best postponed until healing is complete. More serious sprains usually require strengthening exercises after early healing. Your physician has assessed the seriousness of the ligament injury to your ankle. However, the treatment may change, depending on how your ankle progresses. If further exams were recommended, it is important that you follow through. Call the doctor if your foot becomes numb, painful, or severely swollen. EDDIE WRAP: A compression dressing (eddie wrap) has been placed. This helps hold the area still. It limits swelling and internal bleeding. The wrap should be comfortably snug -- not tight. You should feel a sense of pressure, but not severe pain under the wrap. Unless the physician tells you otherwise, you can adjust the wrap for comfort. If the wrap causes symptoms suggesting it's too tight -- uncomfortable pressure, swelling or discoloration beyond the wrap, numbness, or severe pain -- you must loosen the wrap. If these symptoms don't resolve promptly, return for re-evaluation. ANKLE STIRRUP SPLINT: You are to use an ankle brace called a stirrup splint. This type of brace allows you to place greater stresses on the ankle without risk of re-injury, and is often used for more severe ankle injuries such as avulsion fractures and ligament ruptures. The splint can be worn over a sock or tape. For proper support, wear the splint with a shoe over it. It's important that the splint fit properly. Adjust the heel tension, if needed. If your splint has air bladders, peel back the bottom of each air bladder, then move the Velcro attachment of the heel strap up or down. Air bladder pressure can be adjusted by pulling up the valve at the top, threading the air tube down into the main bladder, then blowing air into the bladder or squeezing it out. The two sides of the stirrup can be moved forward or back on your ankle by changing the attachment of the main straps. If you are unable to use the ankle comfortably in the splint, return for re-evaluation. USE OF CRUTCHES: The doctor has recommended that you not bear weight at this time. You will need to use crutches. Adjust the crutches so the tops come to about two inches under the armpit while you are standing upright. Use your hands -- not your armpits -- to support your weight. To get into a chair, support yourself with one crutch on the injured side. Hold the chair with the other hand, then lower yourself while putting all your weight on the good leg. Going up stairs is `good leg up, step up, then bring up crutches and bad leg.' Down stairs is `bad leg and crutches down, then bring good leg down.' If you develop numbness or swelling in an arm or hand, you are using the crutches incorrectly. Return if you are having any problems with the crutches. ICE & ELEVATION: Apply ice packs frequently against the painful area. Many different schedules are recommended, such as "20 minutes on, 20 minutes off" or "one hour ice, two hours rest." If you need to work, you may need to go longer between ice treatments. You should plan to have the area ice packed AT LEAST one-fourth of the time. The ice should be applied over the wrap, tape, or splint, or over a layer of cloth -- not directly against the skin. Some ice bags have a built-in cloth and can be put directly on the skin. Your injured part should be elevated as much as possible over the next 48 hours. Try to keep the injury above the level of the heart. Avoid use of the injured area. Elevation and rest will decrease the swelling. FOLLOW-UP CARE: If you have been referred to a physician for follow-up care, call the physicians office for an appointment as you were instructed or within the next two days. If you experience worsening or a significant change in your symptoms, notify the physician immediately or return to the Emergency Department at any time for re-evaluation. Forms: Elevated Blood Pressure Referrals: Damir TOWNSEND MD [Primary Care Provider] - Follow up as needed [facility] [Provider Group] - Follow up as needed
--- NOTE | 2018-05-10 16:45 | RADIOLOGY REPORT (SQ) ---
EXAM DESCRIPTION: ANKLE LEFT COMPLETE COMPLETED DATE/TIME: 05/10/2018 4:21 pm REASON FOR STUDY: pain and injury COMPARISON: None. NUMBER OF VIEWS: Three views. TECHNIQUE: AP, lateral, and oblique radiographic images acquired of the left ankle. LIMITATIONS: None. FINDINGS: MINERALIZATION: Normal. BONES: No acute fracture or dislocation. No worrisome bone lesions. JOINTS: No effusions. SOFT TISSUES: No soft tissue swelling. No foreign body. OTHER: No other significant finding. IMPRESSION: NEGATIVE STUDY OF THE LEFT ANKLE. NO RADIOGRAPHIC EVIDENCE OF ACUTE INJURY. TECHNICAL DOCUMENTATION: JOB ID: [id number] [employer]- All Rights Reserved Reading location - IP/workstation name: [email or web address]
[2018-05-10 17:51] VITALS: BP 189/90
== END 2018-05-10 17:50 | disposition home or self-care (01) ==
LOC: ER 13:10
DX: S93.402A Sprain of unspecified ligament of left ankle, initial encounter (principal); X50.0XXA Overexertion from strenuous movement or load, initial encounter; Y92.007 Garden or yard of unspecified non-institutional (private) residence as the place of occurrence of the external cause; I25.10 Atherosclerotic heart disease of native coronary artery without angina pectoris; E78.00 Pure hypercholesterolemia, unspecified; I10 Essential (primary) hypertension; E11.9 Type 2 diabetes mellitus without complications; Z79.4 Long term (current) use of insulin; Z90.710 Acquired absence of both cervix and uterus
CPT/HCPCS: 99283; 73610; L1902

== ENCOUNTER 2018-09-20 20:59 | Observation (INO) | payer MEDICARE, OTHER ==
--- NOTE | 2018-09-20 21:50 | ER Document Report ---
ED Medical Screen (RME) - General Chief Complaint: Syncope Stated Complaint: POSSIBLE SYNCOPE Primary Care Provider: Damir TOWNSEND MD [Primary Care Provider] - Follow up as needed Notes: 63-year-old female here for syncopal episode prior to arrival. Patient states that she was getting her hair done when she felt dizzy and then passed out. EMS was called by the hairdresser. When they arrived patient was back to normal. Patient has no complaints at this time other than feeling a little bit weak. Denies any chest pain, shortness of breath, abdominal pain, fever or other issues at this time. I have greeted and performed a rapid initial assessment of this patient. A comprehensive ED assessment and evaluation of the patient, analysis of test results and completion of the medical decision making process will be conducted by additional ED providers. TRAVEL OUTSIDE OF THE [place] IN LAST 30 DAYS: No - Related Data Allergies/Adverse Reactions: amoxicillin [Amoxicillin] Allergy (Verified 05/10/18 15:16) Past Medical History - Past Medical History Cardiac Medical History: Reports: Hx Coronary Artery Disease, Hx Hypercholesterolemia, Hx Hypertension Denies: Hx Congestive Heart Failure, Hx Heart Attack Endocrine Medical History: Reports: Hx Diabetes Mellitus Type 2 - Insulin- dependent Renal/ Medical History: Denies: Hx Peritoneal Dialysis GI Medical History: Reports: Hx Gastroesophageal Reflux Disease, Hx Colonoscopy Musculoskeltal Medical History: Reports Hx Arthritis, Reports Hx Musculoskeletal Deformity, Reports Hx Musculoskeletal Trauma Psychiatric Medical History: Reports: Hx Depression - in hx Past Surgical History: Reports: Hx Appendectomy, Hx Bowel Surgery - Intestinal blockage of the small intestines with part of the intestines rem, Hx Hysterectomy - Immunizations Hx Diphtheria, Pertussis, Tetanus Vaccination: No History of Influenza Vaccine for 02/2017 - 07/2017 Season: Refused Doctor's Discharge - Discharge Referrals: Damir TOWNSEND MD [Primary Care Provider] - Follow up as needed
--- NOTE | 2018-09-20 22:37 | RADIOLOGY REPORT (SQ) ---
EXAM DESCRIPTION: XR CHEST 1 VIEW COMPLETED DATE/TME: 09/20/2018 21:50 CLINICAL HISTORY: 63 years, Female, syncope COMPARISON: 09/13/2017 NUMBER OF VIEWS: One TECHNIQUE: Single AP view of the chest. LIMITATIONS: None. FINDINGS: Cardiomediastinal silhouette is within normal limits. No lung consolidate. No pleural effusion. No pneumothorax. No acute osseous finding. IMPRESSION: No acute chest finding. copyright 2010 [employer]- All Rights Reserved
[2018-09-20] MEDS ORDERED: NORMAL SALINE 500 ML IV ONE (22:38)
--- NOTE | 2018-09-20 22:41 | ER Document Report ---
ED General - General Chief Complaint: Syncope Stated Complaint: POSSIBLE SYNCOPE Time Seen by Provider: 09/20/18 22:29 Primary Care Provider: Damir TOWNSEND MD [Primary Care Provider] - Follow up as needed Mode of Arrival: Ambulatory Information source: Patient Notes: This is a 63-year-old female with a history of diabetes, hypertension, DJD of the back who was brought in by EMS after a syncopal event which occurred at her home while she was getting her hair braided. Patient states she last ate at 3:30 PM (peanut butter and jelly). She states she felt fine and she was getting her hair braided in the next thing she knew she had woken up and her hairdresser said she had passed out. EMS was called to the scene and the blood sugar was 115. Patient denies any chest pain, shortness of breath, vertigo. TRAVEL OUTSIDE OF THE [place] IN LAST 30 DAYS: No - HPI Onset: Just prior to arrival Onset/Duration: Sudden Quality of pain: No pain Severity: None Pain Level: Denies Associated symptoms: denies: Chest pain, Fever, Shortness of breath Exacerbated by: Denies Relieved by: Denies Similar symptoms previously: No Recently seen / treated by doctor: No - Related Data Allergies/Adverse Reactions: amoxicillin [Amoxicillin] Allergy (Verified 05/10/18 15:16) Past Medical History - General Information source: Patient - Social History Smoking Status: Never Smoker Cigarette use (# per day): No Chew tobacco use (# tins/day): No Frequency of alcohol use: None Drug Abuse: None Lives with: Family Family History: Reviewed & Not Pertinent Patient has suicidal ideation: No Patient has homicidal ideation: No - Past Medical History Cardiac Medical History: Reports: Hx Coronary Artery Disease, Hx Hypercholesterolemia, Hx Hypertension Denies: Hx Congestive Heart Failure, Hx Heart Attack Endocrine Medical History: Reports: Hx Diabetes Mellitus Type 2 - Insulin- dependent Renal/ Medical History: Denies: Hx Peritoneal Dialysis GI Medical History: Reports: Hx Gastroesophageal Reflux Disease, Hx Colonoscopy Musculoskeletal Medical History: Reports Hx Arthritis, Reports Hx Musculoskel etal Deformity, Reports Hx Musculoskeletal Trauma Psychiatric Medical History: Reports: Hx Depression - in hx Past Surgical History: Reports: Hx Appendectomy, Hx Bowel Surgery - Intestinal blockage of the small intestines with part of the intestines rem, Hx Hysterectomy - Immunizations Hx Diphtheria, Pertussis, Tetanus Vaccination: No Review of Systems - Review of Systems Constitutional: denies: Chills, Fever EENT: No symptoms reported Cardiovascular: See HPI Respiratory: No symptoms reported Gastrointestinal: No symptoms reported Genitourinary: No symptoms reported Female Genitourinary: No symptoms reported Musculoskeletal: No symptoms reported Skin: No symptoms reported Hematologic/Lymphatic: No symptoms reported Neurological/Psychological: See HPI Physical Exam - Vital signs Vitals: Resp Pulse Ox 12 98 09/20/18 21:22 09/20/18 21:22 Notes: Physical exam: GENERAL: Patient is alert and oriented x3, no acute distress HEAD: Atraumatic, normocephalic. EYES: Pupils equal round and reactive to light, extraocular movements intact, sclera anicteric, conjunctiva are normal. ENT: TMs normal, nares patent, oropharynx clear without exudates. Moist mucous membranes. NECK: Normal range of motion, supple without obvious mass or JVD. LUNGS: Breath sounds clear to auscultation bilaterally and equal. No wheezes rales or rhonchi. HEART: Regular rate and rhythm without murmurs, rubs or gallops. ABDOMEN: Soft, normoactive bowel sounds. No tenderness to palpation. No guarding, no rebound. No masses appreciated. EXTREMITIES: Normal range of motion, no pitting or edema. No clubbing or cyanosis. NEUROLOGICAL: Cranial nerves II through XII grossly intact. Normal speech, moving all extremities. PSYCH: Normal mood, normal affect. SKIN: Warm, Dry, normal turgor, no rashes or lesions noted. Course - Re-evaluation Re-evalutation: 09/21/18 02:40 Note: This is a pleasant 63-year-old female with a history of hypertension and diabetes who presented to the emergency room after an unheralded syncopal episode. Patient is denying chest pain or shortness of breath. It is unclear as far as the etiology of her syncope (it cannot be explained by orthostasis or positional movements). Therefore, we will bring the patient in for further cardiac enzymes, telemetry. - Vital Signs Vital signs: Temp Pulse Resp BP Pulse Ox 18 171/73 H 98 09/21/18 00:31 09/21/18 00:31 09/21/18 00:31 - Laboratory Result Diagrams: 09/20/18 23:02 09/20/18 23:02 Laboratory results interpreted by me: 09/20/18 09/20/18 22:57 23:02 BUN 40 H Creatinine 1.53 H Est GFR ( Amer) 41 L Est GFR (Non-Af Amer) 34 L Glucose 157 H AST 38 H Alkaline Phosphatase 151 H Creatine Kinase 179 H Urine Protein 30 H - Diagnostic Test Radiology reviewed: Image reviewed, Reports reviewed - Chest x-ray shows no infiltrates - EKG Interpretation by Me Rate: Normal Rhythm: NSR - EKG shows normal sinus rhythm with a ventricular rate of 62, no acute ST-T wave changes Discharge - Discharge Clinical Impression: Syncope Condition: Stable Disposition: ADMITTED OBSERVATION Admitting Provider: [facility] Admitted: Telemetry Referrals: Damir TOWNSEND MD [Primary Care Provider] - Follow up as needed
--- NOTE | 2018-09-20 23:00 | EKG REPORT ---
SEVERITY:- BORDERLINE ECG - SINUS RHYTHM NONSPECIFIC ST-T CHANGES LATERAL LEADS : Confirmed by: Devyn Rivas MD 20-Sep-2018 22:59:20
[2018-09-20 23:15] LABS: ABSOLUTE BASOPHILS # (AUTO) 0.1 10^3/uL (0.0-0.2); ABSOLUTE EOSINOPHILS # (AUTO) 0.1 10^3/uL (0.0-0.6); ABSOLUTE LYMPHOCYTES (AUTO) 1.4 10^3/uL (0.5-4.7); ABSOLUTE MONOCYTES (AUTO) 0.4 10^3/uL (0.1-1.4); ABSOLUTE NEUT (AUTO) 5.9 10^3/uL (1.7-8.2); BASOPHILS % (AUTO) 0.9 % (0-2); HEMATOCRIT 39.5 % (36.0-47.0); HEMOGLOBIN 13.1 g/dL (12.0-15.5); LYMPHOCYTES % (AUTO) 18.2 % (13-45); MEAN CORPUSCULAR HEMOGLOBIN 27.8 pg (27.0-33.4); MEAN CORPUSCULAR HGB CONC 33.1 g/dL (32.0-36.0); MEAN CORPUSCULAR VOLUME 84 fl (80-97); MONOCYTES % (AUTO) 4.7 % (3-13); PLATELET COUNT 252 10^3/uL (150-450); RED CELL DISTRIBUTION WIDTH 12.9 % (11.5-14.0); SEGMENTED NEUTROPHILS % (AUTO) 75.2 % (42-78); TOTAL CELLS COUNTED % (AUTO) 100 %; WHITE BLOOD COUNT 7.8 10^3/uL (4.0-10.5)
[2018-09-20 23:18] LABS: APPEARANCE,URINE SLIGHTLY-CLOUDY; BILIRUBIN,URINE NEGATIVE (NEGATIVE); COLOR,URINE YELLOW; GLUCOSE, URINE NEGATIVE (NEGATIVE); KETONES,URINE NEGATIVE (NEGATIVE); LEUKOCYTE ESTERASE,URINE NEGATIVE (NEGATIVE); NITRITE,URINE NEGATIVE (NEGATIVE); PROTEIN,URINE 30 mg/dL (NEGATIVE); URINE SPECIFIC GRAVITY 1.018; UROBILINOGEN,URINE NEGATIVE mg/dL (<2.0)
[2018-09-20 23:29] LABS: ALANINE AMINOTRANSFERASE 45 U/L (9-52); ALBUMIN 4.4 g/dL (3.5-5.0); ALKALINE PHOSPHATASE 151 U/L (38-126); ANION GAP 11 (5-19); ASPARTATE AMINO TRANSFERASE 38 U/L (14-36); BILIRUBIN,DIRECT 0.3 mg/dL (0.0-0.4); BILIRUBIN,TOTAL 0.3 mg/dL (0.2-1.3); BLOOD UREA NITROGEN 40 mg/dL (7-20); CARBON DIOXIDE 28 mmol/L (22-30); CHLORIDE 103 mmol/L (98-107); CREATINE KINASE 179 U/L (30-135); GLUCOSE 157 mg/dL (75-110); POTASSIUM 4.5 mmol/L (3.6-5.0); SODIUM 142.2 mmol/L (137-145)
[2018-09-20 23:41] LABS: TROPONIN I < 0.012 ng/mL
[2018-09-21 04:40] LABS: FREE T4 (FREE THYROXINE) 1.24 ng/dL (0.78-2.19)
[2018-09-21 04:54] LABS: THYROID STIMULATING HORMONE 1.4 uIU/mL (0.47-4.68)
[2018-09-21] MEDS ORDERED: DEXTROSE 40% GEL 15 GM TUBE PO PRN (08:30)
[2018-09-21] MEDS ORDERED: GLUCAGON,HUMAN RECOMB 1 MG INJ IM PRN (08:30)
[2018-09-21] MEDS ORDERED: DEXTROSE 50%-WATER SYRINGE 25 GM/50 ML DOSE IV PRN (08:30)
[2018-09-21] MEDS ORDERED: DEXTROSE 50%-WATER SYRINGE 12.5 GM/25 ML DOSE IV PRN (08:30)
[2018-09-21] MEDS ORDERED: DEXTROSE 40% GEL 15 GM TUBE X 2 PO PRN (08:30)
[2018-09-21 08:37] LABS: CREATINE KINASE MB 0.74 ng/mL (<4.55)
[2018-09-21 08:39] LABS: TROPONIN I < 0.012 ng/mL
[2018-09-21] MEDS ORDERED: ENOXAPARIN SODIUM INJ 30 MG/0.3 ML DISP.SYRIN SUBCUT SCH (10:00)
[2018-09-21] MEDS: INSULIN LISPRO 100 UNIT/ML 3 ML VIAL SUBCUT SCH ×2 (11:29→16:47)
[2018-09-21 15:04] LABS: CREATINE KINASE MB 0.77 ng/mL (<4.55)
[2018-09-21 15:12] LABS: TROPONIN I < 0.012 ng/mL
[2018-09-21 16:12] VITALS: BP 168/72
--- NOTE | 2018-09-21 17:20 | PDOC H&P ---
History of Present Illness Admission Date/PCP: 09/21/18 02:49 Damir TOWNSEND MD History of Present Illness: ANGUS PRYOR is a 63 year old female she has type 2 diabetes mellitus, chronic kidney disease stage III, she had episode of transient loss of consciousness, there was no antecedent chest pain there was no dizziness no shortness of breath there was no emotional outburst. In the emergency room she was evaluated, it was felt that she needed to be observed for 24 hours. I saw her on the floor, when she lost consciousness there was no tonic-clonic contraction, she has no history of seizure, she said before she lost consciousness she felt like her sugar was low but when EMS arrived the Accu-Chek demonstrated glucose of 115 suggesting there was no hypoglycemia. Past Medical History Cardiac Medical History: Reports: Hyperlipidema, Hypertension Endocrine Medical History: Reports: Diabetes Mellitus Type 2 - Insulin-dependent Renal/ Medical History: Reports: Chronic Kidney Disease GI Medical History: Reports: Gastroesophageal Reflux Disease Musculoskeltal Medical History: Reports: Arthritis Psychiatric Medical History: Reports: Depression - in hx Past Surgical History Past Surgical History: Reports: Appendectomy, Hysterectomy Social History Lives with: Family Smoking Status: Never Smoker Frequency of Alcohol Use: None Hx Recreational Drug Use: No Drugs: None Hx Prescription Drug Abuse: No Family History Family History: Reviewed & Not Pertinent Parental Family History Reviewed: Yes Children Family History Reviewed: Yes Sibling(s) Family History Reviewed.: Yes Medication/Allergy Home Medications: Insulin Lispro [Humalog] 0 unit SQ .SLIDING SCALE 03/06/11 Insulin Glargine,Hum.rec.anlog [Lantus] 30 unit SQ QHS 08/01/14 Nitroglycerin [Nitrostat 0.4 mg (1/150 Gr) Tabs 25/Bottle] 1 tab SL Q5MP PRN #1 bottle 09/14/17 Acetaminophen [Tylenol 325 mg Tablet] 325 mg PO Q6HP PRN 09/21/18 Aspirin [Ecotrin 81 mg EC Tablet] 81 mg PO DAILY 09/21/18 Lidocaine/Tetracaine [Lidocaine-Tetracaine 7%-7% Crm] 30 gm TP ASDIR PRN 09/21/18 Valsartan/Hydrochlorothiazide [Valsartan-Hctz 160-12.5 mg Tab] 1 each PO DAILY 09/21/18 Allergies/Adverse Reactions: amoxicillin [Amoxicillin] Allergy (Verified 05/10/18 15:16) Review of Systems Constitutional: ABSENT: chills, fever(s), headache(s), weight gain, weight loss Eyes: ABSENT: visual disturbances Ears: ABSENT: hearing changes Cardiovascular: PRESENT: other - Syncope. ABSENT: chest pain, dyspnea on exertion, edema, orthropnea, palpitations Respiratory: ABSENT: cough, hemoptysis Gastrointestinal: ABSENT: abdominal pain, constipation, diarrhea, hematemesis, hematochezia, nausea, vomiting Genitourinary: ABSENT: dysuria, hematuria Musculoskeletal: ABSENT: joint swelling Integumentary: ABSENT: rash, wounds Neurological: ABSENT: abnormal gait, abnormal speech, confusion, dizziness, focal weakness, syncope Psychiatric: ABSENT: anxiety, depression, homidical ideation, suicidal ideation Endocrine: ABSENT: cold intolerance, heat intolerance, menstrual abnormalities, polydipsia, polyuria Hematologic/Lymphatic: ABSENT: easy bleeding, easy bruising, lymphadenopathy Physical Exam Vital Signs: Temp Pulse Resp BP Pulse Ox 97.8 F 63 18 168/72 H 98 09/21/18 16:00 09/21/18 16:00 09/21/18 16:00 09/21/18 16:00 09/21/18 16:00 Intake & Output 09/20/18 09/21/18 09/22/18 06:59 06:59 06:59 Intake Total 500 Balance 500 Weight 106.7 kg General appearance: PRESENT: no acute distress, well-developed, well-nourished Head exam: PRESENT: atraumatic, normocephalic Eye exam: PRESENT: conjunctiva pink, EOMI, PERRLA Ear exam: PRESENT: normal external ear exam Mouth exam: PRESENT: moist, tongue midline Neck exam: PRESENT: full ROM Respiratory exam: PRESENT: clear to auscultation maximino Cardiovascular exam: PRESENT: RRR, +S1, +S2 Pulses: PRESENT: normal dorsalis pedis pul, +2 pedal pulses bilateral Vascular exam: PRESENT: normal capillary refill GI/Abdominal exam: PRESENT: normal bowel sounds, soft Rectal exam: PRESENT: deferred Neurological exam: PRESENT: alert, awake, oriented to person, oriented to place, oriented to time, oriented to situation, CN II-XII grossly intact Psychiatric exam: PRESENT: appropriate affect, normal mood Skin exam: PRESENT: dry, intact, warm Results Laboratory Results: 09/20/18 23:02 09/20/18 23:02 09/20/18 09/20/18 09/20/18 22:57 23:02 23:02 WBC 7.8 RBC 4.70 Hgb 13.1 Hct 39.5 MCV 84 MCH 27.8 MCHC 33.1 RDW 12.9 Plt Count 252 Seg Neutrophils % 75.2 Lymphocytes % 18.2 Monocytes % 4.7 Eosinophils % 1.0 Basophils % 0.9 Absolute Neutrophils 5.9 Absolute Lymphocytes 1.4 Absolute Monocytes 0.4 Absolute Eosinophils 0.1 Absolute Basophils 0.1 Sodium 142.2 Potassium 4.5 Chloride 103 Carbon Dioxide 28 Anion Gap 11 BUN 40 H Creatinine 1.53 H Est GFR ( Amer) 41 L Est GFR (Non-Af Amer) 34 L Glucose 157 H Calcium 10.0 Total Bilirubin 0.3 AST 38 H ALT 45 Alkaline Phosphatase 151 H Total Protein 8.0 Albumin 4.4 TSH Free T4 Urine Color YELLOW Urine Appearance SLIGHTLY-CLOUDY Urine pH 5.0 Ur Specific [place] 1.018 Urine Protein 30 H Urine Glucose (UA) NEGATIVE Urine Ketones NEGATIVE Urine Blood NEGATIVE Urine Nitrite NEGATIVE Ur Leukocyte Esterase NEGATIVE Urine WBC (Auto) 1 Urine RBC (Auto) 0 09/20/18 23:02 WBC RBC Hgb Hct MCV MCH MCHC RDW Plt Count Seg Neutrophils % Lymphocytes % Monocytes % Eosinophils % Basophils % Absolute Neutrophils Absolute Lymphocytes Absolute Monocytes Absolute Eosinophils Absolute Basophils Sodium Potassium Chloride Carbon Dioxide Anion Gap BUN Creatinine Est GFR ( Amer) Est GFR (Non-Af Amer) Glucose Calcium Total Bilirubin AST ALT Alkaline Phosphatase Total Protein Albumin TSH 1.40 Free T4 1.24 Urine Color Urine Appearance Urine pH Ur Specific [place] Urine Protein Urine Glucose (UA) Urine Ketones Urine Blood Urine Nitrite Ur Leukocyte Esterase Urine WBC (Auto) Urine RBC (Auto) 09/20/18 09/20/18 09/21/18 23:02 23:02 01:43 Creatine Kinase 179 H CK-MB (CK-2) 1.00 Troponin I < 0.012 0.025 09/21/18 09/21/18 09/21/18 07:40 07:40 13:50 Creatine Kinase 146 H 128 CK-MB (CK-2) 0.74 Troponin I < 0.012 09/21/18 13:50 Creatine Kinase CK-MB (CK-2) 0.77 Troponin I < 0.012 Impressions: Chest X-Ray 09/20/18 21:50 IMPRESSION: No acute chest finding. copyright 2011 [employer]- All Rights Reserved Assessment & Plan - Diagnosis (1) Syncope Qualifiers: Syncope type: unspecified Qualified Code(s): R55 - Syncope and collapse Is this a current diagnosis for this admission?: Yes Plan: Patient is admitted for observation, 2D echo was done, there was no dysrhythmia observed on telemetry monitors, she was discharged home for further outpatient evaluation including a 30-day event monitor, Cardiolite stress test (2) T2DM (type 2 diabetes mellitus) Qualifiers: Diabetes mellitus senior living insulin use: without senior living use Diabetes mellitus complication status: with kidney complications Diabetes mellitus complication detail: with chronic kidney disease Chronic kidney disease stage: stage 3 (moderate) Qualified Code(s): E11.22 - Type 2 diabetes mellitus with diabetic chronic kidney disease; N18.3 - Chronic kidney disease, stage 3 (moderate) Is this a current diagnosis for this admission?: Yes (3) Chronic kidney disease (CKD), stage III (moderate) Is this a current diagnosis for this admission?: Yes
--- NOTE | 2018-09-21 17:23 | PDOC DISCHARGE SUMMARY ---
General - Admit/Disc Date/PCP Admission Date/Primary Care Provider: 09/21/18 02:49 K Lexx TOWNSEND MD Discharge Date: 09/21/18 - Discharge Diagnosis (1) Syncope Is this a current diagnosis for this admission?: Yes (2) T2DM (type 2 diabetes mellitus) Is this a current diagnosis for this admission?: Yes (3) Chronic kidney disease (CKD), stage III (moderate) Is this a current diagnosis for this admission?: Yes - Additional Information Home Medications: Insulin Lispro [Humalog] 0 unit SQ .SLIDING SCALE 03/06/11 Insulin Glargine,Hum.rec.anlog [Lantus] 30 unit SQ QHS 08/01/14 Nitroglycerin [Nitrostat 0.4 mg (1/150 Gr) Tabs 25/Bottle] 1 tab SL Q5MP PRN #1 bottle 09/14/17 Acetaminophen [Tylenol 325 mg Tablet] 325 mg PO Q6HP PRN 09/21/18 Aspirin [Ecotrin 81 mg EC Tablet] 81 mg PO DAILY 09/21/18 Lidocaine/Tetracaine [Lidocaine-Tetracaine 7%-7% Crm] 30 gm TP ASDIR PRN 09/21 Valsartan/Hydrochlorothiazide [Valsartan-Hctz 160-12.5 mg Tab] 1 each PO DAILY 09/21/18 History of Present Illness History of Present Illness: ANGUS PRYOR is a 63 year old female she has type 2 diabetes mellitus, chronic kidney disease stage III, she had episode of transient loss of consciousness, there was no antecedent chest pain there was no dizziness no shortness of breath there was no emotional outburst. In the emergency room she was evaluated, it was felt that she needed to be observed for 24 hours. I saw her on the floor, when she lost consciousness there was no tonic-clonic contraction, she has no history of seizure, she said before she lost consciousness she felt like her sugar was low but when EMS arrived the Accu-Chek demonstrated glucose of 115 suggesting there was no hypoglycemia. Hospital Course Hospital Course: Patient was admitted for evaluation of syncope spell, 3 sets of cardiac enzymes negative for acute SD, 2D echo was done, the exact cause of the syncope is not clear, she will need 30-day event monitor outpatient Physical Exam Vital Signs: Temp Pulse Resp BP Pulse Ox 97.8 F 63 18 168/72 H 98 09/21/18 16:00 09/21/18 16:00 09/21/18 16:00 09/21/18 16:00 09/21/18 16:00 Intake & Output 09/20/18 09/21/18 09/22/18 06:59 06:59 06:59 Intake Total 500 Balance 500 Weight 106.7 kg General appearance: PRESENT: no acute distress, well-developed, well-nourished Head exam: PRESENT: atraumatic, normocephalic Eye exam: PRESENT: conjunctiva pink, EOMI, PERRLA Ear exam: PRESENT: normal external ear exam Mouth exam: PRESENT: moist, tongue midline Neck exam: PRESENT: full ROM Respiratory exam: PRESENT: clear to auscultation maximino Cardiovascular exam: PRESENT: RRR, +S1, +S2 Pulses: PRESENT: normal dorsalis pedis pul, +2 pedal pulses bilateral Vascular exam: PRESENT: normal capillary refill GI/Abdominal exam: PRESENT: normal bowel sounds, soft Rectal exam: PRESENT: deferred Neurological exam: PRESENT: alert, CN II-XII grossly intact Skin exam: PRESENT: dry, intact, warm Results Laboratory Results: 09/20/18 23:02 09/20/18 23:02 09/20/18 09/20/18 09/20/18 22:57 23:02 23:02 WBC 7.8 RBC 4.70 Hgb 13.1 Hct 39.5 MCV 84 MCH 27.8 MCHC 33.1 RDW 12.9 Plt Count 252 Seg Neutrophils % 75.2 Lymphocytes % 18.2 Monocytes % 4.7 Eosinophils % 1.0 Basophils % 0.9 Absolute Neutrophils 5.9 Absolute Lymphocytes 1.4 Absolute Monocytes 0.4 Absolute Eosinophils 0.1 Absolute Basophils 0.1 Sodium 142.2 Potassium 4.5 Chloride 103 Carbon Dioxide 28 Anion Gap 11 BUN 40 H Creatinine 1.53 H Est GFR ( Amer) 41 L Est GFR (Non-Af Amer) 34 L Glucose 157 H Calcium 10.0 Total Bilirubin 0.3 AST 38 H ALT 45 Alkaline Phosphatase 151 H Total Protein 8.0 Albumin 4.4 TSH Free T4 Urine Color YELLOW Urine Appearance SLIGHTLY-CLOUDY Urine pH 5.0 Ur Specific [place] 1.018 Urine Protein 30 H Urine Glucose (UA) NEGATIVE Urine Ketones NEGATIVE Urine Blood NEGATIVE Urine Nitrite NEGATIVE Ur Leukocyte Esterase NEGATIVE Urine WBC (Auto) 1 Urine RBC (Auto) 0 09/20/18 23:02 WBC RBC Hgb Hct MCV MCH MCHC RDW Plt Count Seg Neutrophils % Lymphocytes % Monocytes % Eosinophils % Basophils % Absolute Neutrophils Absolute Lymphocytes Absolute Monocytes Absolute Eosinophils Absolute Basophils Sodium Potassium Chloride Carbon Dioxide Anion Gap BUN Creatinine Est GFR ( Amer) Est GFR (Non-Af Amer) Glucose Calcium Total Bilirubin AST ALT Alkaline Phosphatase Total Protein Albumin TSH 1.40 Free T4 1.24 Urine Color Urine Appearance Urine pH Ur Specific [place] Urine Protein Urine Glucose (UA) Urine Ketones Urine Blood Urine Nitrite Ur Leukocyte Esterase Urine WBC (Auto) Urine RBC (Auto) 09/20/18 09/20/18 09/21/18 23:02 23:02 01:43 Creatine Kinase 179 H CK-MB (CK-2) 1.00 Troponin I < 0.012 0.025 09/21/18 09/21/18 09/21/18 07:40 07:40 13:50 Creatine Kinase 146 H 128 CK-MB (CK-2) 0.74 Troponin I < 0.012 09/21/18 13:50 Creatine Kinase CK-MB (CK-2) 0.77 Troponin I < 0.012 Impressions: Chest X-Ray 09/20/18 21:50 IMPRESSION: No acute chest finding. copyright 2010 [employer]- All Rights Reserved Qualifiers - * PATIENT BEING DISCHARGED WITH ANY OF THE FOLLOWING DIAGNOSIS: No Acute Heart Failure Is this a Heart Failure Patient?: No
== END 2018-09-21 18:05 | disposition home or self-care (01) ==
LOC: ER 20:59 → EH 09-21 02:49 → 3N 09-21 04:24
PROVIDERS: ADMIT Internal Medicine; ATTEND Internal Medicine
DX: R55 Syncope and collapse (principal); I12.9 Hypertensive chronic kidney disease with stage 1 through stage 4 chronic kidney disease, or unspecified chronic kidney disease; E11.22 Type 2 diabetes mellitus with diabetic chronic kidney disease; N18.3 Chronic kidney disease, stage 3 (moderate); I25.10 Atherosclerotic heart disease of native coronary artery without angina pectoris; Z79.4 Long term (current) use of insulin; Z79.899 Other long term (current) drug therapy; Z79.82 Long term (current) use of aspirin; Z90.49 Acquired absence of other specified parts of digestive tract
CPT/HCPCS: 93005; 99285; 96360; 36415 ×2; 84439; 82553 ×2; 82962; 82550 ×2; 84443; 85025; 80053; 81001; 84484 ×2; 93306; 71045; 93010; G0378 ×2; A9270; J1650; J7040; J1815

== ENCOUNTER → 2018-09-26 | Outpatient (CLI) | payer MEDICARE, OTHER ==
[2018-09-26 09:41] LABS: APPEARANCE,URINE SLIGHTLY-CLOUDY; BILIRUBIN,URINE NEGATIVE (NEGATIVE); COLOR,URINE YELLOW; GLUCOSE, URINE NEGATIVE (NEGATIVE); KETONES,URINE NEGATIVE (NEGATIVE); LEUKOCYTE ESTERASE,URINE NEGATIVE (NEGATIVE); NITRITE,URINE NEGATIVE (NEGATIVE); PROTEIN,URINE NEGATIVE (NEGATIVE); URINE SPECIFIC GRAVITY 1.013; UROBILINOGEN,URINE NEGATIVE mg/dL (<2.0)
[2018-09-26 09:45] LABS: HEMATOCRIT 37.1 % (36.0-47.0); HEMOGLOBIN 12.2 g/dL (12.0-15.5); MEAN CORPUSCULAR HEMOGLOBIN 27.6 pg (27.0-33.4); MEAN CORPUSCULAR HGB CONC 32.9 g/dL (32.0-36.0); MEAN CORPUSCULAR VOLUME 84 fl (80-97); PLATELET COUNT 234 10^3/uL (150-450); RED BLOOD COUNT 4.42 10^6/uL (3.72-5.28); RED CELL DISTRIBUTION WIDTH 12.8 % (11.5-14.0); WHITE BLOOD COUNT 5.4 10^3/uL (4.0-10.5)
[2018-09-26 10:10] LABS: ANION GAP 10 (5-19); BLOOD UREA NITROGEN 34 mg/dL (7-20); CALCIUM 9.5 mg/dL (8.4-10.2); CARBON DIOXIDE 29 mmol/L (22-30); CHLORIDE 102 mmol/L (98-107); GLUCOSE 181 mg/dL (75-110); POTASSIUM 4.6 mmol/L (3.6-5.0)
[2018-09-26 10:36] LABS: UR PRO/CREAT RATIO RESULT 0.2 mg/mg (0.0-0.2); URINE CREATININE 106.3 mg/dL (15-278); URINE PROTEIN 17.1 mg/dL (<12)
== END ==
LOC: LAB 09:16
PROVIDERS: ATTEND Internal Medicine Nephrology
DX: E11.22 Type 2 diabetes mellitus with diabetic chronic kidney disease (principal); I12.9 Hypertensive chronic kidney disease with stage 1 through stage 4 chronic kidney disease, or unspecified chronic kidney disease; N18.3 Chronic kidney disease, stage 3 (moderate); R80.9 Proteinuria, unspecified
CPT/HCPCS: 36415; 80048; 81001; 82570; 84156; 85027

== ENCOUNTER → 2019-03-21 | Outpatient (CLI) | payer MEDICARE, OTHER ==
[2019-03-21 10:56] LABS: HEMATOCRIT 36.6 % (36.0-47.0); HEMOGLOBIN 12.1 g/dL (12.0-15.5); MEAN CORPUSCULAR HEMOGLOBIN 27.8 pg (27.0-33.4); MEAN CORPUSCULAR VOLUME 84 fl (80-97); PLATELET COUNT 202 10^3/uL (150-450); RED BLOOD COUNT 4.35 10^6/uL (3.72-5.28); RED CELL DISTRIBUTION WIDTH 12.8 % (11.5-14.0)
[2019-03-21 10:58] LABS: APPEARANCE,URINE CLEAR; BILIRUBIN,URINE NEGATIVE (NEGATIVE); COLOR,URINE YELLOW; GLUCOSE, URINE NEGATIVE (NEGATIVE); KETONES,URINE NEGATIVE (NEGATIVE); LEUKOCYTE ESTERASE,URINE NEGATIVE (NEGATIVE); NITRITE,URINE NEGATIVE (NEGATIVE); PROTEIN,URINE NEGATIVE (NEGATIVE); URINE SPECIFIC GRAVITY 1.015; UROBILINOGEN,URINE NEGATIVE mg/dL (<2.0)
[2019-03-21 11:20] LABS: ANION GAP 10 (5-19); BLOOD UREA NITROGEN 28 mg/dL (7-20); CALCIUM 9.5 mg/dL (8.4-10.2); CARBON DIOXIDE 27 mmol/L (22-30); CHLORIDE 105 mmol/L (98-107); GLUCOSE 144 mg/dL (75-110); POTASSIUM 4.4 mmol/L (3.6-5.0)
[2019-03-22 13:37] LABS: CREATININE URINE 100.8 mg/dL (Not Estab.); MICROALBUMIN URINE 103.3 ug/mL (Not Estab.)
== END ==
LOC: LAB 10:07
PROVIDERS: ATTEND Internal Medicine Nephrology
DX: I12.9 Hypertensive chronic kidney disease with stage 1 through stage 4 chronic kidney disease, or unspecified chronic kidney disease (principal); N18.3 Chronic kidney disease, stage 3 (moderate)
CPT/HCPCS: 36415; 80048; 81001; 82043; 82570; 85027